=== PATIENT | female | born 1990 | race Native Hawaiian/Other Pacific Islander ===

== ENCOUNTER 2019-06-24 16:28 | Emergency (ER) | payer OTHER ==
[~2019-06-24] VITALS: Ht 167.6 cm; Wt 90.7 kg
[2019-06-24 16:40] VITALS: BP 132/81; TEMP 97.9
== END 2019-06-24 18:04 | disposition home or self-care (01) ==
LOC: ED 16:28
DX: K04.7 Periapical abscess without sinus (principal); L02.01 Cutaneous abscess of face
CPT/HCPCS: 96372; 99282; 99283; J1885

== ENCOUNTER 2019-11-24 04:49 | Emergency (ER) | payer OTHER ==
[~2019-11-24] VITALS: Ht 167.6 cm; Wt 95.3 kg
[2019-11-24 04:59] VITALS: TEMP 97.3
[2019-11-24 05:38] LABS: PLATELET COUNT 256 K/uL (152-353)
[2019-11-24 05:53] LABS: POTASSIUM 3.9 mmol/L (3.6-5.2); SODIUM 138 mmol/L (136-145)
[2019-11-24 09:38] VITALS: BP 124/82
== END 2019-11-24 09:44 | disposition home or self-care (01) ==
LOC: ED 04:49
PROVIDERS: Emergency Medicine
DX: K80.80 Other cholelithiasis without obstruction (principal)
CPT/HCPCS: 80053; 81000; 81025; 82150; 82550; 82553; 83690; 84484; 85027; 85379; 93005; 99283; Q9963